=== PATIENT | female | born 1945 | race Caucasian/White ===

== ENCOUNTER 2024-02-24 18:36 | Emergency (ER) | payer MEDICARE, SELFPAY ==
[2024-02-24 18:41] VITALS: BP 165/69
[2024-02-24 18:58] VITALS: BMI 37.4
[2024-02-24 19:00] VITALS: BP 141/66
[2024-02-24] MEDS: ULTRAM 50 MG PO (20:04)
--- NOTE | 2024-02-24 20:04 | ED.GENMED ---
History of Present Illness
General
Chief Complaint: Musculo-Skeletal Complaint
Source: patient and family (Daughter who is at the bedside)
Exam Limitations: none
Time Seen by Provider: 02/24/24 19:48
Nursing documentation reviewed up to this point in time: agreed with
History of Present Illness
History of Present Illness:
The patient is a very pleasant 79-year-old female who reports severe pain along the lateral aspect of her right knee. Patient reports that she noticed a small amount of pain in the area over the last 2 days, however, today the pain seemed to
intensify, causing her to have great difficulty standing up and walking. Patient denies injury. She denies fever. She denies back pain and hip pain. She denies any recent falls. Patient states that at rest, the pain is mild and achy but when
she stands up it, it becomes severe. Patient reports that the pain seems to radiate down the outer aspect of her right lower leg and she has some degree of right calf pain. She denies shortness of breath. She denies any recent illnesses.
Past History
Past History
ED Past Medical History: GERD, HTN and Hypercholesterolemia
ED Past Surgical History: Gynecological and Orthopedic
Social History
Tobacco: Former smoker
Alcohol: None
Drug: None
Personal: Other
Living: alone
Employment: Other
Family History
Family History: Other
Review of Systems
Review of Systems
Allergies reviewed?: Yes
All Other Systems: ROS reviewed and negative except as documented in HPI and ROS
Constitutional: Reports no symptoms
EENT: Reports no symptoms
Respiratory: Reports no symptoms
Cardiac: Reports no symptoms
ABD/GI: Reports no symptoms
: Reports no symptoms
Musculoskeletal: Reports joint pain and muscle stiffness
Skin: Reports no symptoms
Neurological: Reports no symptoms
Endocrine: Reports no symptoms
Hematologic/Lymphatic: Reports no symptoms
Psychiatric: Reports no symptoms
Phy Exam
Physical Exam
Physical Exam:
Physical Exam
General: no apparent distress, not acutely ill, conversational, well-appearing
Neck: supple.
Heart: s1/s2 regular rate and rhythm
Lungs: no acute respiratory distress. clear bilaterally
Abdomen: Soft
Neuro: alert and oriented. no focal neurological deficits. 5 out of 5 strength in lower extremities.
Skin: No erythema or warmth of right lower extremity.
Psychiatric: well kept. interactive and cooperative
Extremities: mild soft tissue tenderness of lateral aspect of right knee without fluctuance, warmth or erythema. Mild soft tissue tenderness of proximal right calf. Negative Homans' sign. Strong pulses of right lower
extremity. There is no deformity, swelling, or erythema of right lower extremity. There is no knee effusion of right knee. Patient is able to extend and flex right knee with very little pain or discomfort.
Course
Orders/Labs/Results
Orders:
Orders
02/24/24 19:03
CR Knee- Right 4 Or More View* Urgent
Comment:
Reason For Exam: pain and unable to bear weight
02/24/24 20:01
Tramadol HCl [Ultram] 50 mg PO NOW STA
02/24/24 20:02
US Periph Venous LOWER Ext RT Urgent
Comment:
Reason For Exam: acute R knee pain, calf pain
02/24/24 20:52
Knee Immobilizer Right-Treatme ONCE
Nursing to Place Non Medication Order As Directed
Physician Order: please apply alejandro wrap around R knee and then apply knee immobilizer overlying alejandro wrap
Vital Signs
Initial and Last Documented VS:
Initial Vital Signs
Temp Pulse Resp BP Pulse Ox
98.2 F 93 16 165/69 99
02/24/24 18:41 02/24/24 18:41 02/24/24 18:41 02/24/24 18:41 02/24/24 18:41
Last Documented Vital Signs
Temp Pulse Resp BP Pulse Ox
98.2 F 88 16 141/66 97
02/24/24 18:41 02/24/24 19:00 02/24/24 19:00 02/24/24 19:00 02/24/24 19:00
MDM/Problems Addressed
Differential Diagnosis Includes:
Ruptured Del Toro's cyst of right knee, right lower extremity DVT, musculoskeletal strain of right knee
MDM/Problems Addressed:
Patient presents with acute right knee pain
Acute Exacerbation and/or Progression of Chronic Illness:
Patient is mildly hypertensive, likely due to the stress of being in the ED and the stress of having pain
Acute Exacerbation and/or Progression of Chronic Illness: HTN
*Radiology
Radiology exam reviewed: preliminary read by ED provider (Right knee x-ray reviewed by me. No acute fracture seen.) and radiology read reviewed
*Pulse Oximetry
Patient hypoxic: no
*EKG
Interpreted by ED Provider?: NA
*Boiler Tenders Supervisor Interpretation
Rate: Boiler Tenders Supervisor- N/A
*Critical Care Note
Total Time (30-74mins, 75-104mins- exclusive of procedures): Not Applicable
Data Reviewed
Review of Other/Old Records Reveals: Radiology Studies (Levoscoliosis seen on lumbar spine x-ray from 2022)
Source: patient and family
Update Note
Update Note:
Patient's pain is more bearable with the tramadol. We will apply compressive force on the patient's right knee by applying an Alejandro wrap and knee immobilizer. I am suspicious for soft tissue injury. Perhaps the pain is due to the Del Toro's cyst.
Patient encouraged to follow-up with orthopedics as soon as possible. Given there is no erythema or redness, her knee clinically does not suggest septic joint. Clinically there is no sign of gout
ED Attending Note
-
Portions of this chart may have been created with voice recognition software.� Occasional wrong word or��sound alike� substitutions may have occurred due to the inherent limitations of voice recognition software.
Discharge Plan
Departure
Patient Disposition: Home (Routine Discharge)
Date of Disposition: 02/24/24
Time of Disposition: 21:02
Patient with high blood pressure during this ER visit?: Yes
Condition: Good
Covid-19: Not Applicable
Discharge Problem:
Acute pain of right knee, Del Toro's cyst of knee
Instructions: Knee Immobilizer (DC), Del Toro's Cyst (DC), Knee Pain (DC), BLOOD PRESSURE
Prescriptions:
New
tramadol 50 mg tablet
50 mg PO TID PRN (Reason: Pain) Qty: 10 0RF
Referrals:
Ann Marie Pitts MD [Emergency Provider] -
Pierre Arnold Jr., DO [Family Provider] -
Naveed Mclaughlin MD [Active] - (Call tomorrow to see you soon as possible)
Activity Restrictions/Additional Instructions:
Take 400 mg of ibuprofen/Motrin every 6-8 hours with food for pain. In addition, you could also take the tramadol as needed for severe pain. Please continue to use the knee immobilizer for compression around your right knee if it helps you bear
weight and walk. Please call orthopedic doctor tomorrow for follow-up
Interventions
Interventions:
*Risk Screen - Suicide Last Done: 02/24/24 18:48
*General Assessment Last Done: 02/24/24 18:48
*Neglect/Abuse Screening Last Done: 02/24/24 18:48
ED- Fall Risk Assessment Last Done: 02/24/24 18:48
*ED COVID-19 Vaccine History Last Done: 02/24/24 18:48
ED-Musculoskeletal Assessment Last Done: 02/24/24 19:26
Discharge Date and Time
Print Language: [place] CITIZ[place]
== END 2024-02-24 21:29 | disposition home or self-care (01) ==
LOC: EMR 18:36
PROVIDERS: EMERGENCY PHYSICIAN Emergency Medicine; FAMILY PHYSICIAN Family Medicine
DX: M71.21 Synovial cyst of popliteal space [Baker], right knee (principal); I10 Essential (primary) hypertension; E78.00 Pure hypercholesterolemia, unspecified; K21.9 Gastro-esophageal reflux disease without esophagitis; Z87.891 Personal history of nicotine dependence
CPT/HCPCS: 29505; 99284; 73564; 93971

== ENCOUNTER → 2024-03-23 08:44 | Outpatient (REF) | payer MEDICARE, SELFPAY | LOC: MRI 3T 08:44 | PROVIDERS: ATTENDING PHYSICIAN Physician Assistant Surgical; FAMILY PHYSICIAN Family Medicine; REFERRING PHYSICIAN Orthopaedic Surgery | DX: M25.561 Pain in right knee (principal) | CPT/HCPCS: 73721 ==

== ENCOUNTER 2024-05-29 06:27 | Inpatient (IN) | payer OTHER, SELFPAY ==
[2024-05-12 11:45] LABS: Hematocrit 41.3 % (37.0-47.0); Hemoglobin 13.6 g/dL (12.0-16.0); Mean Corp Hgb Conc. 32.9 g/dL (33.0-37.0); Mean Corpuscular Hgb 28.4 pg (27.0-31.0); Mean Corpuscular Volume 86.2 fL (81.0-99.0); Mean Platelet Volume 9.6 fL (7.4-10.4); Platelet Count 267 10^3/uL (130-400); Red Blood Cell Count 4.79 10^6/uL (4.20-5.40); Red Cell Dist. Width 14.7 % (11.5-14.5); White Blood Cell Count 8.6 10^3/uL (4.8-10.8)
[2024-05-12 13:35] LABS: Glycohemoglobin (HgbA1c) 5.9 % (4.0-5.6)
[2024-05-12 13:49] LABS: ALT (SGPT) 19 U/L (0-35); AST (SGOT) 22 U/L (14-36); Albumin 4.4 g/dl (3.5-5.0); Alkaline Phosphatase 84 U/L (38-126); Blood Urea Nitrogen 16 mg/dl (7-17); Calcium 9.9 mg/dl (8.4-10.2); Carbon Dioxide 29 mmol/L (22-30); Chloride 101 mmol/L (98-107); Glucose 121 mg/dl (70-99); Potassium 4.1 mmol/L (3.5-5.1); Sodium 139 mmol/L (135-145); Total Bilirubin 0.3 mg/dl (0.2-1.3); Total Protein 6.9 g/dl (6.3-8.2); eGFR > 60.00
[2024-05-12 14:09] VITALS: BMI 37.1
[2024-05-12 17:58] VITALS: BMI 37.1
[2024-05-29] VITALS (18 sets, daily range): BP systolic 105–143; BP diastolic 55–95; PULSE 83; O2SAT 98
[2024-05-29] MEDS: TYLENOL 650 MG PO ×5 (07:23→23:11)
[2024-05-29] MEDS: CELEBREX 200 MG PO (07:23)
[2024-05-29] MEDS: NORMOSOL-R/PLASMALYTE-A 1000 IV ×2 (07:23→10:59)
[2024-05-29] MEDS: BACTROBAN NASAL 1 GRAM NASAL (07:24)
[2024-05-29] MEDS: LIPITOR 40 MG PO (11:04)
[2024-05-29] MEDS: SYNTHROID 75 MCG PO (11:04)
[2024-05-29] MEDS: ANTIVERT 12.5 MG PO (11:05)
[2024-05-29] MEDS: PROTONIX 40 MG PO (11:05)
[2024-05-29] MEDS: ROXICODONE 5 MG PO ×2 (11:28→17:09)
--- NOTE | 2024-05-29 11:52 | W.PN.UPDATE ---
Update Note
Progress Note Update
R knee OA s/p R TKA w/ Dr Joe 05/29/24
DVT prophylaxis - ASA, b/l venous foot pumps
HTN - + parameters - monitor BP
MIRTHA - monitor O2
- IS
- Order CPAP HS
GERD - continue PPI therapy
IBS-D - Colace ONLY initially for post-surgical bowel regimen
Lumbar radiculopathy - add Gabapentin HS
Ambulatory dysfunction with balance and gait disturbance and frequent falls - on fall precautions
- PT/OT to assess outpatient needs
Obesity, BMI 37.1 - would benefit from Cefadroxil upon d/c
Hyperlipidemia
Scoliosis with degenerative disc disease
Vertigo
Hypothyroidism
Ovarian cancer > 20 years s/p BLANKA and chemo
Bipolar disorder
Osteopenia
Remote tobacco abuse
--- NOTE | 2024-05-29 14:06 | PTCARENOTE ---
Patient admitted from [facility] total right knee replacement.The patient reports her pain at a 1 out of 10.Neurovascular assessment is within normal limits and ongoing.The Primaseal dressing is intact with scant drainage.The patient is in her bed
with the call mcgraw in reach.
--- NOTE | 2024-05-29 15:37 | RESPNOTE ---
patient states she could never tolerate a cpap machine and hasn't used in 'years.' TT to Angelita Palmer to d/c order.
--- NOTE | 2024-05-29 16:28 | CM ---
Patient seen at bedside.
Dx: osteoarthritis, R TKA
IA completed
CM consult completed
PT rec SNF
[facility] preferred
Referrals Carmela Gamboa, [facility] & Cecilia Cassandra entered in [facility]
Lives in a 1 story home alone, 1 step to enter
PLOF: Ambulates with walker and cane outside
DME: Cane, walker, raised toilet seat
Denies HH/Rehab
PCP: Pierre Arnold Jr
Pharmacy: [facility]
PLAN: SNF, pending bed availability, will need to obtain insurance authorization
[2024-05-29] MEDS: ASPIRIN 325 MG PO (17:10)
[2024-05-29] MEDS: ANCEF 5 IV ×2 (17:10→23:11)
[2024-05-29] MEDS: BACTROBAN 2% OINTMENT 1 APPLIC NASAL (20:03)
[2024-05-29] MEDS: DECADRON 4 MG PO (20:03)
[2024-05-29] MEDS: NEURONTIN 300 MG PO (21:29)
[2024-05-29] MEDS: ROXICODONE 10 MG PO (21:29)
[2024-05-29] MEDS: DILAUDID 0.5 MG IV (23:11)
[2024-05-30 03:53] VITALS: BP 110/61
[2024-05-30] MEDS: ROXICODONE 10 MG PO ×2 (03:57→08:00)
[2024-05-30] MEDS: TYLENOL 650 MG PO ×3 (03:57→12:51)
[2024-05-30] MEDS: SYNTHROID 75 MCG PO (05:03)
[2024-05-30 06:53] VITALS: BP 135/64
--- NOTE | 2024-05-30 07:27 | W.PN.ORTHO ---
Today's Communication / Plan
-
Patient stable. evaluate after PT. May benefit from inpatient rehab course
Assessment
.
Distal Motor Intact: Yes
Dressing:
Clean, dry and intact.
Assessment:
Doing well s/p R TKR
Plan
.
Surgery / Date: 05/29/2024
Activity:
Out of bed.
PT/OT
Discharge Plan: Rehab
Discharge Information:
May benefit from a course of inpatient rehab
Subjective
.
.:
Patient resting comfortably. Notes some pain and stiffness. Has been OOB
Vital Signs and Labs
.
Vital Signs and Labs:
Lab Results
05/12/24 11:12
05/12/24 11:12
Temp Pulse Resp BP Pulse Ox
97.8 F 87 18 135/64 95
05/30/24 06:53 05/30/24 06:53 05/30/24 06:53 05/30/24 06:53 05/30/24 06:53
Non-invasive Hgb result: 13.2
Physical Exam
-
Pulm: nonlabored
RLE: Mild contained drainage on dressing. Calf soft. NVI distally.
[2024-05-30] MEDS: CELEBREX 200 MG PO (08:00)
[2024-05-30] MEDS: PROZAC 40 MG PO (08:02)
[2024-05-30] MEDS: BACTROBAN 2% OINTMENT 1 APPLIC NASAL (08:02)
[2024-05-30] MEDS: ASPIRIN 325 MG PO (08:02)
[2024-05-30] MEDS: LIPITOR 40 MG PO (08:02)
[2024-05-30] MEDS: DECADRON 4 MG PO (08:03)
[2024-05-30] MEDS: ANTIVERT 12.5 MG PO (08:03)
[2024-05-30] MEDS: PROTONIX 40 MG PO (08:03)
[2024-05-30] MEDS: LAMICTAL 200 MG PO (08:04)
[2024-05-30] MEDS: LIDOCAINE 4% PATCH 2 PATCH TOPICAL (08:16)
[2024-05-30] MEDS: NEURONTIN 200 MG PO (08:16)
--- NOTE | 2024-05-30 08:34 | W.PN.ORTHO ---
Today's Communication / Plan
-
Continue to work w/ PT and OT as able.
Monitor pain.
D/c hopefully later today pending continued clinical stability, bed availability at [facility].
Assessment
.
Distal Motor Intact: Yes
Dressing:
Small areas of old incisional bleeding. Dressing otherwise C/D/I.
Assessment:
R knee OA s/p R TKA w/ Dr Joe 05/29/24
DVT prophylaxis - ASA, b/l venous foot pumps
RLE cramping overnight - will add Flexeril BIDPRN (has tolerated previously)
- Will also include lidocaine patches per pt preference
- Increase dose of Gabapentin
HTN - + parameters - BPs overall stable
MIRTHA - O2 stable on RA
- IS
- Ordered CPAP but refused per pt
GERD - continue PPI therapy
IBS-D - Colace ONLY initially for post-surgical bowel regimen
Lumbar radiculopathy - added Gabapentin HS
Ambulatory dysfunction with balance and gait disturbance and frequent falls - on fall precautions
- PT/OT will continue to assess outpatient needs -> current rec is SNF
Obesity, BMI 37.1 - would benefit from Cefadroxil upon d/c
Hyperlipidemia
Scoliosis with degenerative disc disease
Vertigo
Hypothyroidism
Ovarian cancer > 20 years s/p BLANKA and chemo
Bipolar disorder
Osteopenia
Remote tobacco abuse
Plan
.
Surgery / Date: R TKA w/ Dr Joe 05/29/24
DVT Prophylaxis: Aspirin
Activity:
Out of bed.
PT/OT
Discharge Plan: SNF
Subjective
.
.:
Patient examined resting in bed this AM.
Reports RLE cramping overnight.
Denies any other new significant complaints.
PT/OT recommending SNF.
Vital Signs and Labs
.
Vital Signs and Labs:
Lab Results
05/12/24 11:12
05/12/24 11:12
Temp Pulse Resp BP Pulse Ox
97.8 F 87 18 135/64 95
05/30/24 06:53 05/30/24 06:53 05/30/24 06:53 05/30/24 08:03 05/30/24 06:53
Non-invasive Hgb result: 13.2
Physical Exam
-
HEENT: No pallor, cyanosis, or jaundice. Throat clear.
NECK: Supple. No JVD.
RESPIRATORY: Lungs clear to auscultation.
CVS: S1, S2 normal. RRR.�
ABDOMEN: Soft, non-tender. No distension. Obese.
EXTREMITIES: Strength equal, no calf pain with palpation/dorsiflexion. Calves soft.
MACHINE DRILLER: AOx3. No focal deficits. coat finisher grossly intact
[2024-05-30 08:55] VITALS: BP 162/78; BP 163/79; PULSE 85; O2SAT 100
[2024-05-30 09:36] VITALS: BP 163/79; BP 168/74; O2SAT 98
--- NOTE | 2024-05-30 09:36 | CM ---
Plan: Discharge to [facility] on Sunday pending AUTH approval
[2024-05-30] MEDS: ZOFRAN 4 MG IV (09:45)
--- NOTE | 2024-05-30 10:21 | CM ---
Call received from [facility], [place], they had an unexpected bed open up and can accept the patient today, Update to BARBARA and Angelita Palmer.
--- NOTE | 2024-05-30 10:29 | CM ---
Addendum entered by Faina Rush RN 05/30/24 11:46:
Met with patient who agrees to d/c today to [facility] by w/c van. IMM completed. 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
Plan [facility] today by w/c van transport.
Original Note:
Patient with Dx R knee OA s/p R TKA 05/29. Room air. PT & OT recommend skilled rehab.
Spoke with Janet, patient's daughter; she agrees to/and prefers patient going to [facility] for rehab.
Spoke with Tori [facility] insurance; [facility] is approved for 5 days, skilled level 1, NR 06/03 to [phone]. Auth # [id number]. They are unable to qualify this patient for ambulance transport and suggest w/c van.
Spoke with Summer, [facility]; auth info provided. They are able to accept the patient today after 1pm. The for report [phone], fax [phone].
Plan [facility] today by w/c van transport.
--- NOTE | 2024-05-30 10:41 | W.DS.TRANS ---
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
-
Discharge Instructions:
Sleep Apnea Risk Intermediate
Discharge Diagnosis/Procedures R knee OA s/p R TKA w/ Dr Joe 05/29/24
Diet Regular
Activity As tolerated,With Walker
Driving Restrictions Not until seen by your Dr
Bathing Restrictions OK to Shower
Other Services OT,PT
Wound Care Dressing to be removed 1 week post-surgery.
Jory to be removed at 2 week follow-up with
surgeon's office.
Instructions:
Stand-Alone Forms: Total Hip/Knee Replacement D/C
Changes to Home Medications: Yes
Discharge Medications:
DC Medications w/original date entered in [facility]
atorvastatin 40 mg tablet 40 mg PO DAILY High Cholesterol 05/09/24
fluoxetine 20 mg capsule (Prozac) 40 mg PO DAILY Mental Health/Anxiety 05/09/24
lamotrigine 200 mg tablet (Lamictal) 200 mg PO DAILY Mental Health/Anxiety 05/09/24
levothyroxine 75 mcg tablet 75 mcg PO DAILY Thyroid 05/09/24
meclizine 12.5 mg tablet 12.5 mg PO DAILY dizziness 05/09/24
mirtazapine 30 mg tablet (Remeron) 30 mg PO HS Mental Health/Anxiety 05/09/24
multivitamin 1 tab PO DAILY Supplement 05/09/24
omeprazole 40 mg capsule,delayed release 40 mg PO DAILY Gastrointestinal Issue 05/09/24
mupirocin 2 % topical ointment 1 applic topical BID infection prevention #1 tube 05/12/24
Saccharomyces boulardii 250 mg capsule (Florastor) 250 mg PO BID #14 caps 05/29/24
acetaminophen 650 mg tablet,extended release 650 mg PO Q4HWA #1 tab 05/29/24
aspirin 325 mg tablet 325 mg PO DAILY #30 tabs 05/29/24
cefadroxil 500 mg capsule 500 mg PO BID #14 caps 05/29/24
celecoxib 200 mg capsule 200 mg PO DAILY #14 caps 05/29/24
dexamethasone 4 mg tablet 4 mg PO BID #5 tabs 05/29/24
docusate sodium 100 mg capsule 100 mg PO BID #30 caps 05/29/24
ondansetron HCl 4 mg tablet 4 mg PO Q6H PRN nausea and vomiting #30 tabs 05/29/24
sennosides 8.6 mg tablet (Vivienne-daryn) 17.2 mg (2 x 8.6 mg) PO BID PRN constipation #30 tabs 05/29/24
valsartan 160 mg-hydrochlorothiazide 25 mg tablet 1 tab PO DAILY #1 tab 05/29/24
cyclobenzaprine 10 mg tablet 5 mg (1/2 x 10 mg) PO BIDPRN PRN muscle spasms #10 tabs 05/30/24
gabapentin 100 mg capsule 200 mg (2 x 100 mg) PO BID neuropathic pain #40 caps 05/30/24
lidocaine 4 % topical patch 2 patch topical DAILY #30 ea 05/30/24
oxycodone 5 mg tablet 5 - 10 mg (1 - 2 x 5 mg) PO Q6H PRN moderate-severe pain #15 tabs 05/30/24
Home Medication Changes
Saccharomyces boulardii 250 mg capsule (Florastor) 250 mg PO BID #14 caps 05/29/24
acetaminophen 650 mg tablet,extended release 650 mg PO Q4HWA #1 tab 05/29/24
aspirin 325 mg tablet 325 mg PO DAILY #30 tabs 05/29/24
cefadroxil 500 mg capsule 500 mg PO BID #14 caps 05/29/24
celecoxib 200 mg capsule 200 mg PO DAILY #14 caps 05/29/24
dexamethasone 4 mg tablet 4 mg PO BID #5 tabs 05/29/24
docusate sodium 100 mg capsule 100 mg PO BID #30 caps 05/29/24
ondansetron HCl 4 mg tablet 4 mg PO Q6H PRN nausea and vomiting #30 tabs 05/29/24
sennosides 8.6 mg tablet (Vivienne-daryn) 17.2 mg (2 x 8.6 mg) PO BID PRN constipation #30 tabs 05/29/24
cyclobenzaprine 10 mg tablet 5 mg (1/2 x 10 mg) PO BIDPRN PRN muscle spasms #10 tabs 05/30/24
gabapentin 100 mg capsule 200 mg (2 x 100 mg) PO BID neuropathic pain #40 caps 05/30/24
lidocaine 4 % topical patch 2 patch topical DAILY #30 ea 05/30/24
oxycodone 5 mg tablet 5 - 10 mg (1 - 2 x 5 mg) PO Q6H PRN moderate-severe pain #15 tabs 05/30/24
Pending Results: No
--- NOTE | 2024-05-30 11:25 | PTCARENOTE ---
Patient had some nausea and vomiting after taking her pain medication.Zofran given with relief and patient was able to eat some of her breakfast.
[2024-05-30 11:35] VITALS: BP 128/58
== END 2024-05-30 13:10 | DRG 470 ==
LOC: 2 SOUTH 06:27
PROVIDERS: ADMITTING PHYSICIAN Orthopaedic Surgery; FAMILY PHYSICIAN Family Medicine
PROC: 0SRC0J9 Replacement of Right Knee Joint with Synthetic Substitute, Cemented, Open Approach (ICD-10-PCS; 2024-05-29)
DX: M17.11 Unilateral primary osteoarthritis, right knee (principal); C56.9 Malignant neoplasm of unspecified ovary; I10 Essential (primary) hypertension; G47.33 Obstructive sleep apnea (adult) (pediatric); K21.9 Gastro-esophageal reflux disease without esophagitis; K58.0 Irritable bowel syndrome with diarrhea; M54.16 Radiculopathy, lumbar region; E66.9 Obesity, unspecified; Z68.37 Body mass index [BMI] 37.0-37.9, adult; E78.5 Hyperlipidemia, unspecified; M41.9 Scoliosis, unspecified; E03.9 Hypothyroidism, unspecified; F31.9 Bipolar disorder, unspecified; M85.80 Other specified disorders of bone density and structure, unspecified site; Z87.891 Personal history of nicotine dependence; Z91.199 Patient's noncompliance with other medical treatment and regimen due to unspecified reason
CPT/HCPCS: 36415; 73560; 80053; 83036; 85027; 87070; 97116; 97163; 97166; 97530; 97535; C1713; C1776

== ENCOUNTER → 2024-06-02 10:39 | Outpatient (REF) | payer OTHER, SELFPAY ==
[2024-06-02 11:21] LABS: % Immature Granulocytes 0.5 % (0-0.5); % Lymphocytes 10.9 % (20.5-51.1); % Monocytes 7.2 % (1.7-9.3); % Neutrophils 81.4 % (42.2-75.2); Absolute Immature Granulocytes 0.1 10^3/uL (0-0.05); Absolute Lymphocytes 1.1 10^3/uL (1.2-3.4); Absolute Monocytes 0.7 10^3/uL (0.1-0.6); Absolute Neutrophils 7.9 10^3/uL (1.4-6.5); Hematocrit 34.6 % (37.0-47.0); Hemoglobin 11.3 g/dL (12.0-16.0); Mean Corp Hgb Conc. 32.7 g/dL (33.0-37.0); Mean Corpuscular Hgb 28.3 pg (27.0-31.0); Mean Corpuscular Volume 86.5 fL (81.0-99.0); Mean Platelet Volume 9.9 fL (7.4-10.4); Nucleated Red Blood Cells % 0 %; Platelet Count 269 10^3/uL (130-400); Red Cell Dist. Width 14.3 % (11.5-14.5); White Blood Cell Count 9.7 10^3/uL (4.8-10.8)
[2024-06-02 11:41] LABS: Blood Urea Nitrogen 25 mg/dl (7-17); Calcium 9.2 mg/dl (8.4-10.2); Carbon Dioxide 28 mmol/L (22-30); Chloride 102 mmol/L (98-107); Glucose 126 mg/dl (70-99); Potassium 4.1 mmol/L (3.5-5.1); Sodium 139 mmol/L (135-145); eGFR > 60.00
== END ==
LOC: OLABP 10:39
PROVIDERS: ATTENDING PHYSICIAN Family Medicine
DX: Z47.1 Aftercare following joint replacement surgery (principal); M17.11 Unilateral primary osteoarthritis, right knee; E78.5 Hyperlipidemia, unspecified; E03.1 Congenital hypothyroidism without goiter; J45.20 Mild intermittent asthma, uncomplicated; F33.2 Major depressive disorder, recurrent severe without psychotic features; I10 Essential (primary) hypertension; K21.9 Gastro-esophageal reflux disease without esophagitis; E66.01 Morbid (severe) obesity due to excess calories; F31.9 Bipolar disorder, unspecified; M54.16 Radiculopathy, lumbar region; G47.33 Obstructive sleep apnea (adult) (pediatric)
CPT/HCPCS: 36415; 80048; 85025

== ENCOUNTER → 2025-04-02 14:57 | Outpatient (REF) | payer OTHER, SELFPAY | LOC: PAVMRI 14:57 | PROVIDERS: ATTENDING PHYSICIAN Psychiatry & Neurology Neurology; FAMILY PHYSICIAN Family Medicine | DX: R26.89 Other abnormalities of gait and mobility (principal) | CPT/HCPCS: 70551; 72148 ==